=== PATIENT | female | born 1950 | race Caucasian/White ===

== ENCOUNTER 2016-11-12 11:27 | Emergency (ER) | payer MEDICARE, OTHER ==
--- NOTE | 2016-11-12 14:36 | XRAY Preliminary Report ---
Exam: XR Orbits Complete IMPRESSION: Normal orbit radiography. If persistent clinical concern, [id number]
--- NOTE | 2016-11-12 14:38 | XRAY Report ---
EXAM: ORBITS RADIOGRAPHY EXAM DATE: 11/12/2016 02:18 PM. CLINICAL HISTORY: Fall, R orbit pain. COMPARISONS: None. TECHNIQUE: 4 views. FINDINGS: Bones: Normal. No fractures or bone lesions. Sinuses: Normal. No opacities or fluid levels. Other: Normal. No soft tissue swelling. IMPRESSION: Normal orbit radiography. If persistent clinical concern, consider CT. [facility] Referring Provider Line: [phone] SITE ID: [id number]
--- NOTE | 2016-11-12 14:38 | XRAY Preliminary Report ---
Exam: XR Shoulder 3 View LT IMPRESSION: 1. No evidence for dislocation or fracture. 2. Mild left shoulder degenerative changes. [facility] SITE ID: [id number]
[2016-11-12] MEDS ORDERED: IBUPROFEN 400 MG TABLET PO STA (14:39)
--- NOTE | 2016-11-12 14:41 | XRAY Report ---
EXAM: LEFT SHOULDER RADIOGRAPHY EXAM DATE: 11/12/2016 02:18 PM. CLINICAL HISTORY: Fall. Shoulder pain. COMPARISON: None. TECHNIQUE: 3 views. FINDINGS: Bones: Normal. No fracture or bone lesion. Joints: Left acromioclavicular joint space narrowing. Inferior glenoid spurring. Soft tissues: The visualized hemithorax is unremarkable. No soft tissue swelling. IMPRESSION: 1. No evidence for dislocation or fracture. 2. Mild left shoulder degenerative changes. [facility] Referring Provider Line: [phone] SITE ID: [id number]
[2016-11-12] MEDS ORDERED: IBUPROFEN 400 MG TABLET PO ONE (14:51)
--- NOTE | 2016-11-12 16:21 | ED Physician Documentation ---
History of Present Illness - Stated complaint Stated Complaint: GLF, HEAD INJ - Chief complaint Chief Complaint: Trauma Hd/Nk - Additonal information Additional information: hx from pt recent dx MG due to double vision and weakness she fell over while pulling weeds landed face first and her glasses bruised the right periorbital region and also she hit the back of her head on post or other hard object and her L shoulder and lateral neck hurt no LOC no NV no new or diff numbness or weakness Review of Systems Constitutional: denies: Fever Cardiac: denies: Chest pain / pressure GI: denies: Abdominal Pain Musculoskeletal: reports: Neck pain (left lateral not midline) Neurologic: reports: Generalized weakness (MG), Headache, Head injury. denies: Focal weakness, Numbness Endocrine: denies: Easy bruising / bleeding PD PAST MEDICAL HISTORY - Past Medical History Past Medical History: Yes Cardiovascular: Hypertension Endocrine/Autoimmune: Type 2 diabetes, HyPOthyroidism : Incontinence Psych: Depression, Anxiety Musculoskeletal: Osteoporosis - Past Surgical History Past Surgical History: Yes General: Cholecystectomy, Appendectomy Ortho: Hip replacement, Knee replacement /[employer]: section, Hysterectomy - Present Medications Home Medications: Ambulatory Orders Medication Instructions Recorded Confirmed Glipizide 5 mg PO TID 11/12/16 11/12/16 Levothyroxine [Synthroid] 125 mg PO DAILY 11/12/16 11/12/16 Losartan/Hydrochlorothiazide 1 tab PO BID 11/12/16 11/12/16 [Losartan-Hctz 50-12.5 mg Tab] Oxybutynin [Ditropan] 5 mg PO TID 11/12/16 11/12/16 Venlafaxine HCl [Effexor Xr] 150 mg PO DAILY 11/12/16 11/12/16 metFORMIN [Glucophage] 500 mg PO BID 11/12/16 11/12/16 - Allergies Allergies/Adverse Reactions: Allergies Allergy/AdvReac Type Severity Reaction Status Date / Time No Known Drug Allergies Allergy Verified 11/12/16 11:41 - Social History Does the pt smoke?: No Smoking Status: Never smoker Does the pt drink ETOH?: No Does the pt have substance abuse?: No - Immunizations Immunizations are current?: Yes - POLST Patient has POLST: No PD ED PE NORMAL - Vitals Vital signs reviewed: Yes - General General: Alert and oriented X 3 - HEENT HEENT: Other (abrasions to face, tenderness and bruising to right orbit region, hemaotma to left occiput s lac or crepitus, no [place] sign, pupils equal, droopy lids and limited EOMI 2/2 MG is not new) - Neck Neck: No bony TTP, Other (left lateral soft tissue neck TTP, no midline bony TTP ) - Cardiac Cardiac: RRR - Respiratory Respiratory: No respiratory distress, Clear bilaterally - Derm Derm: Other (faial abrasions and bruising) - Extremities Extremities: Other (L shoulder TP and limited ROM s deformity, MSV intact) Results - Vitals Vitals: Vital Signs - 24 hr 11/12/16 11:37 Temperature 36.9 C Heart Rate 80 Respiratory 16 Rate Blood Pressure 133/82 H O2 Saturation 99 Oxygen O2 Source Room air - Rads (name of study) orbit and shoulder Radiology: See rad report (no acute fx) Departure - Departure Disposition: 01 Home, Self Care Clinical Impression: Fall Qualifiers: Encounter type: initial encounter Qualified Code(s): W19.XXXA - Unspecified fall, initial encounter Head injury Qualifiers: Encounter type: initial encounter Qualified Code(s): S09.90XA - Unspecified injury of head, initial encounter Facial abrasion Qualifiers: Encounter type: initial encounter Qualified Code(s): S00.81XA - Abrasion of other part of head, initial encounter Facial contusion Qualifiers: Encounter type: initial encounter Qualified Code(s): S00.83XA - Contusion of other part of head, initial encounter Sprain of shoulder, left Qualifiers: Encounter type: initial encounter Shoulder sprain type: unspecified sprain Qualified Code(s): S43.402A - Unspecified sprain of left shoulder joint, initial encounter Condition: Good Instructions: ED Head Injury Closed, ED Sprain Shoulder Follow-Up: Geovani Haskins MD [Primary Care Provider] - Comments: The xrays were fine - no fractures As we discussed, given that you did not lose consciousness etc, I do not think you need a CT scan of your head. But please read over the head injury discharge paperwork and return to the ER for new or worsening symptoms Both tylenol and motrin are safe to take with myasthenia gravis Keep abrasions clean and apply antibiotic ointment twice a day until healed Wear the sling as needed And please follow up with your PMD to get your blood pressure rechecked - it was high today
[2016-11-12 16:35] VITALS: BP 142/90
== END 2016-11-12 16:34 | disposition home or self-care (01) ==
LOC: ED 11:27
DX: S00.83XA Contusion of other part of head, initial encounter (principal); S00.81XA Abrasion of other part of head, initial encounter; S43.402A Unspecified sprain of left shoulder joint, initial encounter; W18.39XA Other fall on same level, initial encounter; Y93.H2 Activity, gardening and landscaping; Y92.017 Garden or yard in single-family (private) house as the place of occurrence of the external cause; I10 Essential (primary) hypertension; E11.9 Type 2 diabetes mellitus without complications; Z79.84 Long term (current) use of oral hypoglycemic drugs; E03.9 Hypothyroidism, unspecified; M81.0 Age-related osteoporosis without current pathological fracture
CPT/HCPCS: 70200; 73030; 99283; A9270

== ENCOUNTER 2020-10-31 21:56 | Outpatient (CLI) | payer MEDICARE, OTHER | END 2020-10-31 21:57 | disposition short-term general hospital (02) | LOC: EMS 21:56 | DX: R53.1 Weakness (principal); R42 Dizziness and giddiness; R06.09 Other forms of dyspnea | CPT/HCPCS: A0425; A0427 ==

== ENCOUNTER 2021-02-04 08:25 | Outpatient (CLI) | payer MEDICARE, OTHER ==
--- NOTE | 2021-02-04 09:04 | XRAY Report ---
PROCEDURE: Chest 2 View X-Ray INDICATIONS: F/U COVID PNEUMONIA TECHNIQUE: 2 view(s) of the chest. COMPARISON: None. FINDINGS: Surgical changes and devices: None. Lungs and pleura: No pleural effusions or pneumothorax. Lungs are clear. Mediastinum: Mediastinal contours are normal. Heart size is mildly prominent. Bones and chest wall: No suspicious bony abnormalities. Soft tissues appear unremarkable. IMPRESSION: No acute pulmonary process. Reviewed by: Koki Brandt MD on 02/04/2021 9:02 AM [facility] Approved by: Koki Brandt MD on 02/04/2021 9:02 AM [facility] Station ID: [id number]
== END 2021-02-04 08:26 | disposition home or self-care (01) ==
LOC: DI 08:25
PROVIDERS: ATTEND Internal Medicine
DX: Z09 Encounter for follow-up examination after completed treatment for conditions other than malignant neoplasm (principal); Z86.16 Personal history of COVID-19

== ENCOUNTER 2022-07-31 10:09 | Outpatient (CLI) | payer MEDICARE, OTHER ==
--- NOTE | 2022-07-31 16:00 | XRAY Report ---
PROCEDURE: Chest 2 View X-Ray INDICATIONS: SHORTNESS OF BREATH TECHNIQUE: 2 views of the chest were acquired. COMPARISON: Chest x-ray, 02/04/2021. FINDINGS: Surgical changes and devices: None. Lungs and pleura: No pleural effusions or pneumothorax. Lungs are clear. Mediastinum: Mediastinal contours appear normal. Heart size is normal. Bones and chest wall: No suspicious bony lesions. Overlying soft tissues appear unremarkable. IMPRESSION: No acute cardiopulmonary process. Reviewed by: Austyn Beauchamp MD on 07/31/2022 3:58 PM PDT Approved by: Austyn Beauchamp MD on 07/31/2022 3:58 PM PDT Station ID: [id number]
== END 2022-07-31 10:10 | disposition home or self-care (01) ==
LOC: DI.N 10:09
PROVIDERS: ATTEND Surgery Vascular Surgery
DX: R06.02 Shortness of breath (principal)

== ENCOUNTER 2023-01-18 14:52 | Outpatient (CLI) | payer MEDICARE, OTHER ==
--- NOTE | 2023-01-25 12:15 | Mammography Report ---
BILATERAL DIGITAL SCREENING MAMMOGRAM 3D/2D: 01/18/2023 CLINICAL: Routine screening. Comparison is made to exam dated: 12/30/2009 mammogram - [facility]. Both breasts are heterogeneously dense, which may obscure small masses (category c / 51-75% glandular tissue). No significant masses, calcifications, or other findings are seen in either breast. There has been no significant interval change. IMPRESSION: NEGATIVE There is no mammographic evidence of malignancy. A 1 year screening mammogram is recommended. Dense breasts and presumed benign oval bilateral masses reduce mammographic sensitivity. Additional c omparisons are listed in the imaging history but are unavailable for review currently. Based on the Tyrer Cuzick model (a risk assessment model) the patients lifetime risk is 6.2% and her 10 year risk is 5.6%. According to the ACR, ACS, and NCCN guidelines, an annual breast MRI exam viki g with mammogram is recommended if the patients lifetime risk is 20% or greater. This exam was interpreted at Station ID: [id number]. NOTE: For mammograms, a report in lay terms will be sent to the patient. Approximately 15% of breast malignancies will not be visualized mammographically. In the management of a palpable breast mass, a negative mammogram must not discourage biopsy of a clinically suspicious lesion. Electronically Signed By: Patrick Lira M.D. lc/:01/25/2023 10:00:18 letter sent: No_Letter ACR BI-RADS Category 1: Negative 3341F PARENCHYMAL PATTERN: (D) - The breast(s) demonstrate(s) heterogeneously dense fibroglandular hakeem jules. BI-RADS CATEGORY: (1) - 1 Mammogram [id number] 1 year screening LATERALITY: (B)
== END 2023-01-18 14:53 | disposition home or self-care (01) ==
LOC: DI.N 14:52
PROVIDERS: ATTEND Student in an Organized Health Care Education/Training Program
DX: Z12.31 Encounter for screening mammogram for malignant neoplasm of breast (principal); R92.333 Mammographic heterogeneous density, bilateral breasts

== ENCOUNTER 2023-01-20 08:58 | Outpatient (CLI) | payer MEDICARE, OTHER ==
--- NOTE | 2023-01-20 10:09 | DEXA Report ---
PROCEDURE: Dexa Spine and/or Hip INDICATIONS: POST MENOPAUSAL TECHNIQUE: Dual energy x-ray absorptiometry (DXA) was performed on a [employer] System. Regions measur ed are the AP Spine, femoral neck, and if needed forearm. COMPARISON: None FINDINGS: Lumbar Spine: Bone Mineral Density 1.644 g/cm/cm,T score 3.9. Left Femoral Neck: Bone Mineral Density 1.062 g/cm/cm, T score 0.2. Left Hip: Bone Mineral Density 1.193 g/cm/cm,T score 1.5. (T score greater or equal to -1.0: NORMAL) (T score from -1.1 to -2.4: OSTEOPENIA) (T score less than or equal to -2.5 to: OSTEOPOROSIS) Impression: By WHO criteria, this patient has normal bone density. Patients with diagnosis of osteoporosis or osteopenia should have regular bone mineral density assess ment. For those eligible for Medicare, routine testing is allowed once every 2 years. Testing frequ ency can be increased for patients who have rapidly progressing disease or for those who are receivin g medical therapy to restore bone mass. Reviewed by: Guillaume Muse MD on 01/20/2023 10:08 AM PST Approved by: Guillaume Muse MD on 01/20/2023 10:08 AM PST Station ID: [id number]
== END 2023-01-20 08:59 | disposition home or self-care (01) ==
LOC: DI 08:58
PROVIDERS: ATTEND Student in an Organized Health Care Education/Training Program
DX: Z78.0 Asymptomatic menopausal state (principal)